=== PATIENT | male | born 1960 | race Caucasian/White ===

== ENCOUNTER 2023-08-27 20:27 | Emergency (ER) | payer MEDICARE, MEDICAID, SELFPAY ==
[2023-08-27 20:34] VITALS: BP 133/87; PULSE 77; RESP 18; TEMP 36.7; O2SAT 95; BMI 26.6
--- NOTE | 2023-08-27 20:49 | ED.GENADULT ---
HPI - General Adult General Chief complaint: Unspecified Complaint, Adult Stated complaint: Given wrong medication-from [facility] Time Seen by Provider: 08/27/23 20:49 History of Present Illness HPI narrative: pt given wrong patients medications at [facility]. pt received lithium carb capsule 150mg and 300mg. mirtazapine 30 mg. senna and ziprasidone 80mg. at 1999 63-year-old man presenting to the emergency department after concern of ingestion of medications not prescribed to him. Resident of [facility]. It appears there were some changes to staff coverage and miscommunication. Erroneous medications given are lithium 450 mg mirtazapine 30 mg dosing of senna and ziprasidone 80 mg all approximately an hour prior to this interview. Poison Control has been contacted. Primary concern is sedation but otherwise medically cleared. I have reviewed medications normally given and for potential interactions. Related Data Home Medications Medication Instructions Recorded Confirmed aripiprazole 10 mg tablet 10 mg PO DAILY 08/08/23 08/08/23 cetirizine 10 mg tablet 10 mg PO DAILY 08/08/23 08/08/23 cholecalciferol (vitamin D3) 10 10 mcg PO QDAY 08/08/23 08/08/23 mcg (400 unit) capsule citalopram 10 mg tablet 10 mg PO DAILY 08/08/23 08/08/23 citalopram 20 mg tablet 20 mg PO DAILY 08/08/23 08/08/23 fluticasone propionate 50 spray intranasal 08/08/23 08/08/23 mcg/actuation nasal spray,suspension melatonin 3 mg capsule 9 mg PO QHS 08/08/23 08/08/23 memantine 5 mg tablet 5 mg PO DAILY 08/08/23 08/08/23 multivitamin with folic acid 400 1 tab PO QAM 08/08/23 08/08/23 mcg tablet (Tab-A-Natalie) olanzapine 15 mg tablet 15 mg PO QPM 08/08/23 08/08/23 omeprazole 20 mg capsule,delayed 20 mg PO DAILY 08/08/23 08/08/23 release psyllium husk (aspartame) 3.4 ea PO 08/08/23 08/08/23 gram/5.8 gram oral powder (Natural Daily Fiber) tamsulosin 0.4 mg capsule 0.4 mg PO DAILY 08/08/23 08/08/23 trazodone 100 mg tablet mg PO 08/08/23 08/08/23 Allergies Allergy/AdvReac Type Severity Reaction Status Date / Time Antihistamines - Alkylamine Allergy Verified 08/08/23 12:40 carbamazepine [From Tegretol] Allergy Verified 08/08/23 12:40 grass pollen Allergy Verified 08/08/23 12:40 house dust Allergy Verified 08/08/23 12:40 loratadine Allergy Verified 08/08/23 12:40 alkylalamine Allergy Uncoded 08/08/23 12:40 Review of Systems Status of ROS: Reports: 6 or more systems reviewed and unremarkable except as noted in History and below [facility] Social History Smoking Status: Never smoker Second hand tobacco smoke exposure: No How often do you have a drink containing alcohol: never AUDIT-C Alcohol total score: 0 Non-prescribed substance use: denies use Exam Narrative: Exam Narrative: Well-nourished. NAD. Does not appear excessively somnolent. Nonverbal. It is evening around 9:00 p.m. now. Breathing easily. Heart in regular rate and rhythm. Looks to be in usual state of health as described. Moving all extremities without difficulty. Is accompanied by supportive and appropriately attentive staff. Knowledgeable. Const: Vital Signs, click to edit/add: Vital Signs - 24 hr 08/27/23 20:34 Temperature 98.1 F Pulse Rate [Pulse Oximeter] 77 Respiratory Rate 18 Blood Pressure [Ri ght Upper Arm] 133/87 Pulse Oximetry 95 Oxygen Delivery Me thod Room Air Documenting provider has reviewed patient's vital signs: yes Course Vital Signs Vital signs: Initial Vital Signs Temperature 98.1 F 08/27/23 20:34 Temperature Source Temporal Artery Scan 08/27/23 20:34 Pulse Rate 77 08/27/23 20:34 Respiratory Rate 18 08/27/23 20:34 Blood Pressure 133/87 08/27/23 20:34 Blood Pressure Mean 102 08/27/23 20:34 Blood Pressure Position Sitting 08/27/23 20:34 Pulse Oximetry 95 08/27/23 20:34 Oxygen Delivery Method Room Air 08/27/23 20:34 Vital Signs Temperature 98.1 F 08/27/23 20:34 Pulse Rate 77 08/27/23 20:34 Respiratory Rate 18 08/27/23 20:34 Blood Pressure 133/87 08/27/23 20:34 Pulse Oximetry 95 08/27/23 20:34 Oxygen Delivery Method Room Air 08/27/23 20:34 Temperature 98.1 F 08/27/23 21:08 Pulse Rate 77 08/27/23 21:08 Respiratory Rate 18 08/27/23 21:08 Blood Pressure 133/87 08/27/23 21:08 Pulse Oximetry 95 08/27/23 21:07 Oxygen Delivery Method Room Air 08/27/23 21:07 Medical Decision Making MDM Narrative Medical decision making narrative: Reviewed medication list and diagnoses. Stable vitals. In usual state of health. Poison control consulted. No labs or further evaluation appears to be necessary at this time See patient discharge plan for further discussion Medical Records Medical records reviewed: Yes I reviewed the patient's medical records Discharge Plan Discharge Clinical Impression: Medication administered in error Patient Disposition: Home w/ Parent or Adult Condition: Stable Additional Instructions: Out of the usual dosing of evening medications, I would hold all of the medications other than taking 1/2 of your usual olanzapine dosing and take all of your usual melatonin dosing. Tomorrow morning 08/28/2023, resume usual medications. Prescriptions: No Action memantine 5 mg tablet 5 mg PO DAILY aripiprazole 10 mg tablet 10 mg PO DAILY citalopram 20 mg tablet 20 mg PO DAILY citalopram 10 mg tablet 10 mg PO DAILY omeprazole 20 mg capsule,delayed release(DR/EC) 20 mg PO DAILY cetirizine 10 mg tablet 10 mg PO DAILY fluticasone propionate 50 mcg/actuation spray,suspension intranasal olanzapine 15 mg tablet 15 mg PO QPM tamsulosin 0.4 mg capsule 0.4 mg PO DAILY trazodone 100 mg tablet PO melatonin 3 mg capsule 9 mg PO QHS cholecalciferol (vitamin D3) 10 mcg (400 unit) capsule 10 mcg PO QDAY Natural Daily Fiber 3.4 gram/5.8 gram powder PO multivitamin with folic acid [Tab-A-Natalie] 400 mcg tablet 1 tab PO QAM Follow Up/Referrals: Bakari Mccullough MD [Primary Care Provider] - Stand Alone Forms: [facility] Info Instructions
[2023-08-27 21:07] VITALS: BP 133/87; PULSE 77; RESP 18; TEMP 36.7; O2SAT 95
[2023-08-27 21:08] VITALS: BP 133/87; PULSE 77; RESP 18; TEMP 36.7
== END 2023-08-27 21:08 | disposition home or self-care (01) ==
PROVIDERS: Emergency Provider Family Medicine; PCP Family Medicine
DX: T50.901A Poisoning by unspecified drugs, medicaments and biological substances, accidental (unintentional), initial encounter (principal)
CPT/HCPCS: 99283; 99284

== ENCOUNTER 2024-10-06 14:44 | Outpatient (CLI) | payer MEDICARE, MEDICAID, SELFPAY ==
[2024-10-06 16:02] LABS: Chloride* 104 mmol/L (96-114); Potassium* 3.9 mmol/L (3.6-5.1); Sodium* 138 mmol/L (135-149)
[2024-10-06 16:04] LABS: Blood Urea Nitrogen* 18 mg/dL (7-30); Creatinine* 1.2 mg/dL (0.5-1.5); Estimated Glomerular Filt Rate 68 ml/min
[2024-10-06 16:05] LABS: Calcium* 8.8 mg/dL (8.4-10.6); Carbon Dioxide* 27 mmol/L (20-32); Cholesterol* 192 mg/dL (90-199); Glucose* 111 mg/dL (60-115); HDL Cholesterol* 35 mg/dL (>=40); LDL Cholesterol Calculated 115 mg/dL (<100); Triglycerides* 210 mg/dL (40-149)
[2024-10-06 16:22] LABS: Vitamin D 25 Hydroxy* 52 ng/mL (30-80)
[2024-10-06 16:29] LABS: Anion Gap 7 mEq/L (7-15)
[2024-10-06 16:37] LABS: PSA Screen* 1.71 ng/mL (0.10-4.00)
[2024-10-06 19:15] LABS: Hemoglobin A1C* 5.7 % (0-5.6)
== END 2024-10-06 14:45 | disposition home or self-care (01) ==
LOC: LAB 14:51
PROVIDERS: PCP Family Medicine; Visit Provider Family Medicine
DX: E78.5 Hyperlipidemia, unspecified (principal); R73.03 Prediabetes; E55.9 Vitamin D deficiency, unspecified; Z12.5 Encounter for screening for malignant neoplasm of prostate
CPT/HCPCS: 36415; 80048; 80061; 82306; 83036; G0103